=== PATIENT | male | born 1995 | race Caucasian/White ===

== ENCOUNTER 2017-09-26 18:21 | Emergency (ER) | payer BC ==
[~2017-09-26] VITALS: Ht 188 cm; Wt 76.0 kg
[~2017-09-26 18:21] MED LIST: GUAISYP4 PO; IBUP-1277 PO
[2017-09-26 19:03] VITALS: Ht 188 cm; Wt 76.0 kg
[2017-09-26 19:35] VITALS: BP 132/68; PULSE 78; TEMP 36.7; O2SAT 99
--- NOTE | 2017-09-27 16:15 | EMERGENCY ROOM VISIT NOTE ---
History First contact with patient: 19:08 Chief Complaint: OTHER COMPLAINT Stated Complaint: POSSIBLE MUMPS History of Present Illness The patient is a 22 year old male who presents to the Emergency Room with complaints of possible exposure to months. Patient states that one of his roomates girlfriend was exposed to months. The roommates girlfriend has been asymptomatic and has not tested for mumps. The patient himself is not experiencing facial pain, fever, chills, lymphadenopathy, chest pain, abdominal pain, testicular pain, or difficulties using the bathroom. He states that he got his normal childhood immunizations when he was younger. He rates his overall discomfort a 0/10. He is a [employer] [place] [employer] student. Review of Systems More than 10 systems were reviewed and otherwise negative with the exception of history of present illness. Past Medical/Surgical History No chronic medical disease Family History No pertinent family history Social History Smoking Status: Never Smoker Housing Status: lives with roommate Occupation Status: [employer] student Current/Historical Medications No Active Prescriptions or Reported Meds Physical Exam Vital Signs Date Time Temp Pulse Resp B/P (MAP) Pulse Ox O2 Delivery O2 Flow Rate FiO2 09/26/17 19:35 36.7 78 18 132/68 99 09/26/17 19:03 36.7 78 18 132/68 99 Room Air Physical Exam VITALS: Vitals are noted on the nurse's note and reviewed by myself. Vital signs stable. GENERAL: Well-developed, well-nourished, white male, who is in no acute distress and resting comfortably. Patient is cooperative with the examination. HEAD: Normocephalic atraumatic. MOUTH: Mucous membranes moist. Tonsils are not enlarged. Pharynx without erythema, blood, or exudate. Uvula midline. Airway patent. NECK: Supple without nuchal rigidity. No lymphadenopathy. No thyromegaly. Cervical spine is nontender. HEART: Regular rate and rhythm without murmurs gallops or rubs. LUNGS: Clear to auscultation bilaterally without wheezes, rales or rhonchi. No retractions or accessory muscle use. ABDOMEN: Positive normal bowel sounds x 4. Soft, nontender, without masses or organomegaly. No guarding or rebound tenderness. MUSCULOSKELETAL: No muscle atrophy, erythema, or edema noted. Full range of motion without joint tenderness in all extremities. Medical Decision & Procedures ED Course Physical exam and history were performed. Nursing notes, EMR, and Medication List were personally reviewed. Patient appears to have had possible exposure to mumps about 2 weeks ago. The patient is asymptomatic at this time and appears well. He does not have a distinct exposure to mom's himself and is reportedly immunized as a child. The patient does not meet criteria for mumps testing at this time. If he develops symptoms he was asked to follow with [facility] or return to the ER for further management. The patient voiced understanding and was discharged home. The chart was completed utilizing [employer] Speech Voice Recognition Software. Grammatical errors, random word insertions, pronoun errors, and incomplete sentences are an occasional consequence of this system due to software limitations, ambient noise, and hardware issues. Any formal questions or concerns about the content, text, or information contained within the body of this dictation should be directly addressed to the provider for clarification. Medical Decision Differential diagnosis includes, but is not limited to: Infectious disease exposure, mumps, and others Impression Primary Impression: Infectious disease exposure Departure Information Dispostion Home / Self-Care Condition GOOD Prescriptions No Active Prescriptions or Reported Meds Forms HOME CARE DOCUMENTATION FORM, IMPORTANT VISIT INFORMATION Patient Instructions My [facility], ED Mumps Additional Instructions You were seen and evaluated today on an emergency basis only. This is not a substitute for, or an effort to provide, complete comprehensive medical care. It is not possible to recognize and treat all injuries or illnesses in a single emergency department visit. For this reason it is recommended that you followup with [facility] or back in the ER if you develop new or worsening symptoms. You are welcome to return to the emergency department anytime with new, worsening, or concerning symptoms.
== END 2017-09-26 19:36 | disposition home or self-care (01) ==
LOC: C.EDB 18:22 → C.EDD 19:36
DX: Z20.89 Contact with and (suspected) exposure to other communicable diseases (principal)